=== PATIENT | female | born 1970 | race Caucasian/White ===

== ENCOUNTER → 2020-10-23 | Outpatient (CLI) | payer BC | LOC: KOH-I 14:09 | DX: M54.2 Cervicalgia (principal); M54.5 Low back pain; M48.02 Spinal stenosis, cervical region; M47.812 Spondylosis without myelopathy or radiculopathy, cervical region | CPT/HCPCS: 72040; 72100 ==

== ENCOUNTER → 2022-04-25 | Outpatient (CLI) | payer BC | LOC: EXRD 09:43 | DX: M50.322 Other cervical disc degeneration at C5-C6 level (principal); M43.12 Spondylolisthesis, cervical region | CPT/HCPCS: 72040 ==